=== PATIENT | male | born 1985 | race African-American/Black ===

== ENCOUNTER 2022-10-02 17:12 | Emergency (ER) | payer SELFPAY ==
[2022-10-02 18:08] LABS: ALKALINE PHOSPHATASE 60 U/L (46-116); BUN 16 mg/dl (9-23); CHLORIDE 105 mmol/L (98-107); CREATININE 0.93 mg/dL (0.70-1.30); ETHYL ALCOHOL 3.2 mg/dl (<3); POTASSIUM 3.9 mmol/L (3.4-5.1); SGPT/ALT 21 U/L (10-49); THYROID STIM HORMONE (HS) 0.466 uIU/ml (0.550-4.780); TOTAL PROTEIN 6.6 gm/dL (6.0-8.0)
== END 2022-10-02 19:23 | disposition left against medical advice (07) ==
LOC: ED 17:12
PROVIDERS: Family Medicine
DX: R41.82 Altered mental status, unspecified (principal)